=== PATIENT | male | born 1955 | race Caucasian/White ===

== ENCOUNTER → 2018-02-09 | Outpatient (CLI) | payer OTHER ==
[~2018-02-09] MED LIST: ALBU90OI6 INH; ALBU90OI61 INH; ALLERGY10 MG PO; ASPI81CH PO; ATEN25 PO; ATOR80 PO; Allergy Relief10 M1 PO; Aspirin EC81 MG PO; BUDE6HFA INH; CARV6.25; CHOL10002; CHOL10002 PO; CLEM1.34; CLOP75 PO; CYCL10 PO; Crestor20 MG PO; ENOX80I SC; Enulose 2020 G/30 ML PO; FERR325 PO; GABA100 PO; HYDR1TAB94 PO; Kristalose20 GM PO; LACT10SY; LISI5 PO; MAGOXI400 PO; MOTION RELIEF25 MG PO; MUCINEX FAST-M1 EAC1 PO; MUCINEX FAST-M1 EACH PO; Mucinex600 MG PO; NITR.4SL SL; NITR.6SL SL; Nicoderm Cq1 EACH TOP; Norco 5-325 Ta1 EACH PO; OMEP20ER PO; ONDA4 PO; Omeprazole20 M1 PO; PARO20; Percocet 5-3251 EACH PO; Prilosec20 MG PO; ROSU10TA PO; ROSU5; TIOT18; TIOT18 INH; TRAM50 PO; TRIA80TC TOP; VITAMIN D-32000 UNIT PO; VITAMIN D35000 UNI1 PO; [UNRECOGNIZED DRUG - OTHER] PO
== END | disposition home or self-care (01) ==
LOC: LAB SHORT 13:22 → PLD 13:22
DX: D22.5 Melanocytic nevi of trunk (principal)
CPT/HCPCS: 88305